=== PATIENT | female | born 1955 | race Caucasian/White ===

== ENCOUNTER 2018-01-22 04:37 | Outpatient (CLI) | payer OTHER | END 2018-01-22 04:38 | disposition critical access hospital (66) | LOC: EMS 04:37 | PROVIDERS: ATTEND Surgery | DX: I46.9 Cardiac arrest, cause unspecified (principal) | CPT/HCPCS: A0425; A0433 ==

== ENCOUNTER 2018-01-22 04:40 | Emergency (ER) | payer OTHER ==
[~2018-01-22 04:40] MED LIST: MAGNESIUM SULFATE 2 GRAM 2 GM/50 ML BAG IV ONE
--- NOTE | 2018-01-22 05:21 | XRAY Report ---
Reason: post CPR, intubation Procedure Date: 01/22/2018 Accession Number: [id number] / [id number] Procedure: XR - Chest 1 View X-Ray CPT Code: 28298 FULL RESULT: EXAM: CHEST RADIOGRAPHY EXAM DATE: 01/22/2018 05:07 AM. CLINICAL HISTORY: Found down. Post CPR, intubation. COMPARISON: None. TECHNIQUE: 1 view. FINDINGS: Lungs/Pleura: Airspace opacities in the right upper lobe and throughout the left lung. No obvious pleural effusion seen. No pneumothorax. Mediastinum: Within exam limitations, the cardiomediastinal contour is normal. Other: Endotracheal tube 4.0 cm above the cheri. IMPRESSION: 1. Airspace opacities in the right upper lobe and throughout the left lung which could represent aspiration and/or edema. Pneumonia also possible. 2. ETT 4.0 cm above the cheri. RADIA
[2018-01-22 05:27] LABS: ABG BASE EXCESS -25.8 mmol/L (-2.0-3.0); ABG HCO3 10.2 mmol/L (22.0-26.0); ABG OXYGEN SATURATION 98 % (94-98); ABG TCO2 12.5 MMOL/L (21.0-29.0)
[2018-01-22 05:29] LABS: ABG PCO2 74 mmHg (34-45); ABG PH 6.76 (7.35-7.45); ABG PO2 204 mmHg (80-100)
[2018-01-22 05:36] LABS: ALBUMIN 2.8 g/dL (3.2-5.5); ALBUMIN/GLOBULIN RATIO 1.2 (1.0-2.2); BILIRUBIN,TOTAL 0.2 mg/dL (0.2-1.0); CALCIUM 7.8 mg/dL (8.5-10.3); CREATININE 1.5 mg/dL (0.4-1.0); TOTAL PROTEIN 5.2 g/dL (6.7-8.2)
[2018-01-22 05:42] LABS: BASOPHILS % (AUTO) 0.3 %; EOSINOPHILS # (AUTO) 0.1 10^3/uL (0.0-0.7); EOSINOPHILS % (AUTO) 0.8 %; HGB - HEMOGLOBIN 10.4 g/dL (12.0-16.0); LYMPHOCYTES # (AUTO) 4.7 10^3/uL (1.5-3.5); LYMPHOCYTES % (AUTO) 32.8 %; MEAN CORPUSCULAR HEMOGLOBIN 30.5 pg (27.0-31.0); MEAN CORPUSCULAR HGB CONC 30.8 g/dL (32.0-36.0); MEAN CORPUSCULAR VOLUME 99.1 fL (81.0-99.0); MEAN PLATELET VOLUME 9.5 fL (7.9-10.8); MONOCYTES # (AUTO) 0.5 10^3/uL (0.0-1.0); MONOCYTES % (AUTO) 3.5 %; NEUTROPHILS # (AUTO) 8.9 10^3/uL (1.5-6.6); NEUTROPHILS % (AUTO) 62.6 %; PLT - PLATELET COUNT 173 10^3/uL (130-450); RED BLOOD COUNT 3.41 10^6/uL (4.20-5.40); RED CELL DISTRIBUTION WIDTH 14.2 % (12.0-15.0); WHITE BLOOD COUNT 14.3 x10^3/uL (4.8-10.8)
[2018-01-22] MEDS ORDERED: FUROSEMIDE 40 MG/4 ML VIAL ONE (05:54)
[2018-01-22 06:04] LABS: BILIRUBIN,URINE NEGATIVE (NEGATIVE); GLUCOSE, URINE (UA) >=1000 mg/dL (NEGATIVE); KETONES,URINE (UA) NEGATIVE (NEGATIVE); LEUKOCYTE ESTERASE, URINE NEGATIVE (NEGATIVE); NITRITE,URINE NEGATIVE (NEGATIVE); OCCULT BLOOD,URINE MODERATE (NEGATIVE); PROTEIN,URINE >=300 mg/dL (NEGATIVE); UROBILINOGEN,URINE 0.2 (NORMAL) E.U./dL (NORMAL)
[2018-01-22 06:07] LABS: CLARITY,URINE HAZY (CLEAR)
[2018-01-22 06:11] LABS: BACTERIA,URINE Few /HPF (None Seen); RBC,URINE TNTC /HPF (0-5); SQUAMOUS EPITHELIAL CELL,UR MOD Squamous (<= Few)
[2018-01-22] MEDS ORDERED: SODIUM CHLORIDE 0.9% 1,000 ML IV ONE ×3 (06:23→06:25)
[2018-01-22] MEDS ORDERED: EPINEPHrine 1 MG/ML AMP IVP STA (06:23)
[2018-01-22] MEDS ORDERED: MAGNESIUM SULFATE 1 GM/2 ML VIAL IVP STA (06:24)
[2018-01-22] MEDS ORDERED: SODIUM BICARBONATE ABBOJECT 50 MEQ/50 ML SYRINGE IVP STA ×2 (06:24→06:25)
[2018-01-22] MEDS ORDERED: FUROSEMIDE 40 MG/4 ML VIAL IVP STA (06:25)
[2018-01-22] MEDS ORDERED: DEXTROSE 5% IVP STA (06:26)
[2018-01-22] MEDS ORDERED: EPINEPHRINE IVP STA (06:26)
--- NOTE | 2018-01-22 06:32 | ED Physician Documentation ---
PD HPI CPR - Stated complaint Stated Complaint: CPR - Chief complaint Chief Complaint: Critical Care - History obtained from History obtained from: Family - History of Present Illness Timing - onset: Enter time (299), Today Timing - onset during: Rest Preceding symptoms: Other (did not feel well) Contributing factors: Other (CPAP) Witnessed: Arrest witnessed Fall: No fall Bystander CPR: Bystander CPR EMS findings: Unresponsive, Pulseless, Asystole Treatment COUNTERSINKER BALANCE SCREW HOLE: CPR, Intubated, Epi, Lidocaine Advanced directive: Pt has advanced directive - Additional information Additional information: 62 y/o female did not feel well last night and slept in another room. SO heard "gurgling" and investigated to find the patient unresponsive. He called 911 and instituted CPR Medics arrived to find patient in asystole and administered epi with ROSCI. They required epi X 2 more en-route to the hospital. The SO gives history that the patient uses CPAP and takes some medications but has not had a heart attack previously. Review of Systems Unable to obtain: Intubated PD PAST MEDICAL HISTORY - Allergies Allergies/Adverse Reactions: Allergies Allergy/AdvReac Type Severity Reaction Status Date / Time Unable to Assess Allergy Verified 01/22/18 04:44 PD ED PE NORMAL - Vitals Vital signs reviewed: Yes (PEA on arrival ) - General General: Other (ET tube in place with frothy blood. ) - HEENT HEENT: Atraumatic, Other (pupils fixed on arrival. ) - Cardiac Cardiac: Other (bedside ultrasound shows poor/no contraction on arrival and rapidly progessed to rapid heart rate with biventricular contractions. ) - Respiratory Respiratory: Other (intubated with equal breath sounds. frothy bloody fluid from ET tube. ) - Derm Derm: Normal color, Warm and dry, No rash - Extremities Extremities: No deformity, No edema - Neuro Neuro: Other (no respiratory effort and fixed pupils.) Results - Vitals Vitals: Vital Signs - 24 hr 01/22/18 01/22/18 01/22/18 04:39 04:47 04:55 Temperature Heart Rate 0 L 108 H 101 H Respiratory 0 L 13 13 Rate Blood Pressure 155/140 H 65/48 L O2 Saturation 0 L 87 L 01/22/18 01/22/18 01/22/18 04:59 05:04 05:08 Temperature Heart Rate 67 112 H 93 Respiratory 15 12 12 Rate Blood Pressure 54/38 L 198/108 H 162/83 H O2 Saturation 93 97 95 01/22/18 01/22/18 01/22/18 05:10 05:15 05:26 Temperature 35.5 C L 32.2 C L Heart Rate 89 79 86 Respiratory 15 16 16 Rate Blood Pressure 125/75 95/63 103/93 H O2 Saturation 93 93 96 01/22/18 01/22/18 01/22/18 05:34 05:52 05:58 Temperature 34.1 C L 34.2 C L 34.1 C L Heart Rate 95 98 110 H Respiratory 16 15 14 Rate Blood Pressure 109/83 H 179/116 H 174/111 H O2 Saturation 97 78 L 83 L 01/22/18 01/22/18 01/22/18 06:06 06:14 06:22 Temperature 34.0 C L 34.0 C L 33.9 C L Heart Rate 99 100 98 Respiratory 16 20 17 Rate Blood Pressure 170/130 H 188/109 H 185/105 H O2 Saturation 90 L 98 94 01/22/18 01/22/18 06:39 06:55 Temperature 34.0 C L 34.0 C L Heart Rate 94 92 Respiratory 21 23 Rate Blood Pressure 151/102 H 154/104 H O2 Saturation 89 L 92 Oxygen O2 Source Room air Oxygen Flow Rate 15 - EKG (time done) 0449 Rate: Rate (enter#) (103) Intervals: RBBB Ischemia: ST elevation c/w ischemia (I, aVL and V6), ST depression (multiple leads consistent with injury ) Compare to prior EKG: Old EKG unavailable Computer interpretation: Agree with computer 0542 Rate: Rate (enter#) (103) Rhythm: Sinus tachycardia Intervals: RBBB Ischemia: ST elevation c/w ischemia, ST depression Compare to prior EKG: Unchanged from prior EKG (earlier today) Computer interpretation: Agree with computer - Labs Labs: Laboratory Tests 01/22/18 01/22/18 01/22/18 04:50 04:50 05:09 WBC RBC Hgb Hct MCV MCH MCHC RDW Plt Count MPV Neut # (Auto) Lymph # (Auto) [place] # (Auto) Eos # (Auto) Baso # (Auto) Absolute Nucleated RBC Nucleated RBC % Bld Gas Analysis Time 0512 Sample Site A-LINE ABG pH 6.76 L* ABG pCO2 74 H* ABG pO2 204 H* ABG HCO3 10.2 L ABG Total CO2 12.5 L ABG O2 Saturation 98 ABG Oximetry Spot Check 100 ABG Base Excess -25.8 L Emanuel Test NOT APPLICABLE O2 Delivery Device VENTILATOR Sodium 139 Potassium 3.8 Chloride 106 Carbon Dioxide 17 L Anion Gap 16.0 H BUN 15 Creatinine 1.5 H Estimated GFR (MDRD) 35 L Glucose 420 H Lactic Acid Calcium 7.8 L Total Bilirubin 0.2 AST 413 H ALT 560 H Alkaline Phosphatase 42 Troponin I 5.02 H* B-Natriuretic Peptide Total Protein 5.2 L Albumin 2.8 L Globulin 2.4 Albumin/Globulin Ratio 1.2 Lipase 41 Urine Color Urine Clarity Urine pH Ur Specific [place] Urine Protein Urine Glucose (UA) Urine Ketones Urine Occult Blood Urine Nitrite Urine Bilirubin Urine Urobilinogen Ur Leukocyte Esterase Urine RBC Urine WBC Ur Squamous Epith Cells Urine Bacteria Ur Microscopic Review Urine Culture Comments 01/22/18 01/22/18 01/22/18 05:30 05:30 05:30 WBC 14.3 H RBC 3.41 L Hgb 10.4 L Hct 33.8 L MCV 99.1 H MCH 30.5 MCHC 30.8 L RDW 14.2 Plt Count 173 MPV 9.5 Neut # (Auto) 8.9 H Lymph # (Auto) 4.7 H [place]oke # (Auto) 0.5 Eos # (Auto) 0.1 Baso # (Auto) 0.0 Absolute Nucleated RBC 0.02 Nucleated RBC % 0.1 Bld Gas Analysis Time Sample Site ABG pH ABG pCO2 ABG pO2 ABG HCO3 ABG Total CO2 ABG O2 Saturation ABG Oximetry Spot Check ABG Base Excess Emanuel Test O2 Delivery Device Sodium Potassium Chloride Carbon Dioxide Anion Gap BUN Creatinine Estimated GFR (MDRD) Glucose Lactic Acid 8.7 H* Calcium Total Bilirubin AST ALT Alkaline Phosphatase Troponin I B-Natriuretic Peptide 155 H Total Protein Albumin Globulin Albumin/Globulin Ratio Lipase Urine Color Urine Clarity Urine pH Ur Specific [place] Urine Protein Urine Glucose (UA) Urine Ketones Urine Occult Blood Urine Nitrite Urine Bilirubin Urine Urobilinogen Ur Leukocyte Esterase Urine RBC Urine WBC Ur Squamous Epith Cells Urine Bacteria Ur Microscopic Review Urine Culture Comments 01/22/18 05:55 WBC RBC Hgb Hct MCV MCH MCHC RDW Plt Count MPV Neut # (Auto) Lymph # (Auto) [place] # (Auto) Eos # (Auto) Baso # (Auto) Absolute Nucleated RBC Nucleated RBC % Bld Gas Analysis Time Sample Site ABG pH ABG pCO2 ABG pO2 ABG HCO3 ABG Total CO2 ABG O2 Saturation ABG Oximetry Spot Check ABG Base Excess Emanuel Test O2 Delivery Device Sodium Potassium Chloride Carbon Dioxide Anion Gap BUN Creatinine Estimated GFR (MDRD) Glucose Lactic Acid Calcium Total Bilirubin AST ALT Alkaline Phosphatase Troponin I B-Natriuretic Peptide Total Protein Albumin Globulin Albumin/Globulin Ratio Lipase Urine Color YELLOW Urine Clarity HAZY Urine pH 7.0 Ur Specific [place] 1.025 Urine Protein >=300 H Urine Glucose (UA) >=1000 H Urine Ketones NEGATIVE Urine Occult Blood MODERATE H Urine Nitrite NEGATIVE Urine Bilirubin NEGATIVE Urine Urobilinogen 0.2 (NORMAL) Ur Leukocyte Esterase NEGATIVE Urine RBC TNTC H Urine WBC >25 H Ur Squamous Epith Cells MOD Squamous H Urine Bacteria Few Ur Microscopic Review INDICATED Urine Culture Comments NOT INDICATED Procedures - Bedside sono Bedside sono by EMP: bedside ultrasound with poor squeeze on arrival---- in PEA--- with spontaneous change to biventricular squeeze and ROSC 3 minutes after epi given. PD MEDICAL DECISION MAKING - ED course Complexity details: reviewed results, re-evaluated patient, considered differential, d/w family, d/w hearing consultant (Dr. Iraheta contracts manager at [facility] graciously agrees to accept the patient in transfer and requests we contact food demonstrator oracle adf developer about potential cath. Dr. Henderson oracle adf developer at [facility] is contacted in the case and would like to take the patient to the oil laboratory analyst. ) ED course: 62-year-old female who was not feeling well earlier tonight has collapsed and CPR has been done by bystander followed by resuscitation by medics involving administration of epinephrine and lidocaine with return of spontaneous circulation. She did have PEA on arrival to the emergency department and developed return of circulation spontaneously here shortly after arrival. This was likely secondary to the epinephrine given by the medics on arrival to the ER. The patient again developed PEA with poor squeeze seen on bedside ultrasound and loss of pulse. She was subsequently administered another dose of epinephrine with improved cardiac cranky contractility on bedside and return of spontaneous circulation. She had improvement in her vital signs associated with this and when she began to have a decrease in her heart rate and saturation a epinephrine drip was begun and she did not have another round of CPR. The epinephrine drip that we provided here was 2 mg of epinephrine and 1 L of saline run at 500 milliliters per hour. This was eventually changed to 350ml/hr and resulted in stable perfusion. Her initial blood gas had pH of 6.76, her pupils were fixed and she was making no effort to breath. Family presented to the ED and we indicated a likely grim outcome. The patient continued to improve. Her core temp was 34 and she was begun on a cooling blanket. Diagnostics indicated acute injury current by EKG and a trop of 5. Her CXR showed asymmetric infiltrate/edema and she was given IV lasix as well. Urine on a cath specimen appeared infected and IV cefipime and vanco were started. - Critical Care Time(min): 70 Time Includes: Direct patient care, Review records, Reassess patient, Document care, Coordinate care, Medical consult, Family consult for tx dec Data interpretation: Labs, ABG, CXR Procedures included in critical care time: Blood draw Procedures excluded from critical care time: EKG - Sepsis Event Vital Signs: Vital Signs - 24 hr 01/22/18 01/22/18 01/22/18 04:39 04:47 04:55 Temperature Heart Rate 0 L 108 H 101 H Respiratory 0 L 13 13 Rate Blood Pressure 155/140 H 65/48 L O2 Saturation 0 L 87 L 01/22/18 01/22/18 01/22/18 04:59 05:04 05:08 Temperature Heart Rate 67 112 H 93 Respiratory 15 12 12 Rate Blood Pressure 54/38 L 198/108 H 162/83 H O2 Saturation 93 97 95 01/22/18 01/22/18 01/22/18 05:10 05:15 05:26 Temperature 35.5 C L 32.2 C L Heart Rate 89 79 86 Respiratory 15 16 16 Rate Blood Pressure 125/75 95/63 103/93 H O2 Saturation 93 93 96 01/22/18 01/22/18 01/22/18 05:34 05:52 05:58 Temperature 34.1 C L 34.2 C L 34.1 C L Heart Rate 95 98 110 H Respiratory 16 15 14 Rate Blood Pressure 109/83 H 179/116 H 174/111 H O2 Saturation 97 78 L 83 L 01/22/18 01/22/18 01/22/18 06:06 06:14 06:22 Temperature 34.0 C L 34.0 C L 33.9 C L Heart Rate 99 100 98 Respiratory 16 20 17 Rate Blood Pressure 170/130 H 188/109 H 185/105 H O2 Saturation 90 L 98 94 01/22/18 01/22/18 06:39 06:55 Temperature 34.0 C L 34.0 C L Heart Rate 94 92 Respiratory 21 23 Rate Blood Pressure 151/102 H 154/104 H O2 Saturation 89 L 92 Oxygen O2 Source Room air Oxygen Flow Rate 15 Departure - Departure Disposition: 02 Transfer Acute Care Hosp Clinical Impression: Cardiac arrest Myocardial infarction acute Qualifiers: Myocardial infarction type: non-ST elevation myocardial infarction Qualified Code(s): I21.4 - Non-ST elevation (NSTEMI) myocardial infarction Urinary tract infection Qualifiers: Urinary tract infection type: acute cystitis Hematuria presence: with hematuria Qualified Code(s): N30.01 - Acute cystitis with hematuria
--- NOTE | 2018-01-22 06:45 | XRAY Report ---
Reason: NG tube placement Procedure Date: 01/22/2018 Accession Number: [id number] / [id number] Procedure: XR - Chest 1 View X-Ray CPT Code: 22051 FULL RESULT: EXAM: CHEST RADIOGRAPHY EXAM DATE: 01/22/2018 06:39 AM. CLINICAL HISTORY: NG tube placement. COMPARISON: CHEST 1 VIEW 01/22/2018 4:51 AM. TECHNIQUE: 1 view. FINDINGS: Lungs/Pleura: Improving aeration of the right upper lobe. Widespread bilateral infiltrates. No effusion or pneumothorax. Mediastinum: Within exam limitations, the cardiomediastinal contour is normal. Other: Endotracheal tube terminates approximately 7 cm above the cheri. Enteric tube terminates in the stomach. IMPRESSION: Enteric tube terminating in the stomach. Improving aeration in the right upper lobe. Widespread bilateral infiltrates. RADIA
[2018-01-22] MEDS ORDERED: VANCOMYCIN INJ 1 GM in SODIUM CHLORIDE 0.9% 500 ML IV STA (06:46)
[2018-01-22] MEDS ORDERED: CEFEPIME 1 GM in SODIUM CHLORIDE 0.9% MINIBAG 100 ML IV STA (06:46)
[2018-01-22 07:30] LABS: ABG BASE EXCESS -16.2 mmol/L (-2.0-3.0); ABG HCO3 13.5 mmol/L (22.0-26.0); ABG PCO2 46 mmHg (34-45); ABG PO2 92 mmHg (80-100); ABG TCO2 14.9 MMOL/L (21.0-29.0)
[2018-01-22 07:31] LABS: ABG OXYGEN SATURATION 95 % (94-98)
[2018-01-22 07:34] LABS: ABG PH 7.09 (7.35-7.45)
[2018-01-22 07:46] VITALS: BP 160/114
== END 2018-01-22 07:55 | disposition short-term general hospital (02) ==
LOC: ED 04:40
DX: I46.9 Cardiac arrest, cause unspecified (principal); I21.4 Non-ST elevation (NSTEMI) myocardial infarction; N30.01 Acute cystitis with hematuria; I45.10 Unspecified right bundle-branch block; R00.0 Tachycardia, unspecified
CPT/HCPCS: 36415; 36600; 51702; 71045; 80053; 81001; 82803; 83605; 83690; 83880; 84484; 85025; 87040; 92950; 93005; 94770; 96361; 96365; 96375; 99291; J3370; 81003; 87086; 99285

== ENCOUNTER → 2018-01-22 | Outpatient (CLI) | payer OTHER | END | disposition short-term general hospital (02) | LOC: EMS 07:57 | PROVIDERS: ATTEND Surgery | DX: I46.9 Cardiac arrest, cause unspecified (principal) | CPT/HCPCS: A0170; A0425; A0427 ==